=== PATIENT | male | born 1970 | race Caucasian/White ===

== ENCOUNTER → 2017-06-14 | Emergency (ER) | payer OTHER ==
[~2017-06-14] MED LIST: ALBUTEROL SO4 2.5/IPRATROPIUM 0.5 INH SOL 3 ML VIAL.NEB. NEB ONE; MONTELUKAST NA 10 MG TABLET ONE; MONTELUKAST NA 10 MG TABLET PO ONE; predniSONE 20 MG TABLET (UD) ONE; predniSONE 20 MG TABLET (UD) PO ONE
[2017-06-14 18:14] VITALS: BMI 35.4
--- NOTE | 2017-06-14 18:49 | PDOC ---
History of Present Illness - General Chief Complaint: Respiratory Stated Complaint: COUGH/SOB Time Seen by Provider: 06/14/17 18:47 History Source: Patient, Family Exam Limitations: No Limitations - History of Present Illness Initial Comments: 06/14/17 18:48 Patient is a 47 year old male with recent diagnosis of asthma presenting with 3 weeks of a productive cough and difficulty breathing that has been acutely worse recently. Patient states that he has been having a tickling sensation in his throat that causes him to have coughing spells during which he cannot catch his breath. His coughs are wet and produce a white sputum that occasionally contains specs of blood. Symptoms are worse at night and aggravated by walking. Patient states he currently can only walk a short distance before he starts coughing and has to stop. When sleeping, patient often has to sit up to keep from coughing. 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 He was prescribed an albuterol inhaler q4hr that helped and after about three months his symptoms resolved and he only occasionally used the inhaler until three weeks ago. In the last three weeks patient has been using the inhaler 10+ times a day with minimal relief. Patient claims he was prescribed prednisone PRN for his previous incident and has taken an unknown amount of that recently and it helped some. Denies any other medications. Patient denies having asthma, allergies or similar symptoms when he was younger but has a mother and sister with asthma. He has never been intubated or required BiPap or hospitalization for his condition. He did present to the ED on one previous occasion and received DuoNeb treatments. Patient is a lifelong non-smoker but has worked in a [employer] for the last 5 years. Denies acid reflux of waking with a bad taste in his mouth. Endorses nasal congestion but denies fever, chills, nausea, vomiting, diarrhea, recent illness and sick contacts. Patient is here his son who also works in the [employer] and translated for his father. PCP: Moy Gomez ([phone]) Past History - Past Medical History Allergies/Adverse Reactions: Allergies Allergy/AdvReac Type Severity Reaction Status Date / Time No Known Allergies Allergy Verified 06/14/17 18:14 Home Medications: Ambulatory Orders Albuterol Sulfate Inhaler - [Ventolin HFA Inhaler -] 1 - 2 inh PO Q4H #1 inhaler 01/28/17 Montelukast Na [Singulair -] 10 mg PO HS #30 tablet 06/14/17 Prednisone [Deltasone -] 2 tab PO DAILY #10 tablet 06/14/17 Asthma: Yes - Psycho/Social/Smoking Cessation Hx Anxiety: No Suicidal Ideation: No Smoking Status: No Smoking History: Never smoked Number of Cigarettes Smoked Daily: 0 Hx Alcohol Use: No Drug/Substance Use Hx: No Substance Use Type: None Review of Systems - Review of Systems Able to Perform ROS?: Yes Is the patient limited Chadian proficient: Yes Constitutional: No: Chills, Fever, Malaise Respiratory: Yes: Cough (coughing spells due to "tickle" in throat), Shortness of Breath Cardiac (ROS): Yes: Chest Tightness, Other (Tickle in throat). No: Chest Pain, Edema, Palpitations, Syncope ABD/GI: Yes: Other (denies gerd). No: Constipated, Diarrhea, Nausea, Vomiting Musculoskeletal: No: Joint Pain, Muscle Pain, Muscle Weakness Integumentary: No: Bruising, Rash Neurological: Yes: Dizziness (when in coughing spell). No: Headache Psychiatric: No: Anxiety *Physical Exam - Vital Signs Last Vital Signs Temp Pulse Resp BP Pulse Ox 98.2 F 89 22 145/105 94 L 06/14/17 18:10 06/14/17 18:10 06/14/17 18:10 06/14/17 18:10 06/14/17 18:10 06/14/17 19:50 Peak Flow 210 O2Sat 99% on 2L - Physical Exam General Appearance: Yes: Nourished, Appropriately Dressed, Mild Distress, Obese (Moderatly) HEENT: positive: EOMI, JENISE, Normal ENT Inspection, Normal Voice Neck: positive: Supple. negative: Stridor, Lymphadenopathy (R), Lymphadenopathy (L) Respiratory/Chest: positive: Wheezing (corse, all lung quiñones, b/l), Other (Wet cough on deep inspiration). negative: Chest Tender, Accessory Muscle Use, Labored Respiration Cardiovascular: positive: Regular Rhythm, Regular Rate. negative: Edema, JVD, Murmur Gastrointestinal/Abdominal: positive: Soft. negative: Tender, Distended Musculoskeletal: positive: Normal Inspection Extremity: positive: Normal Capillary Refill, Normal Inspection Integumentary: positive: Normal Color, Dry, Warm Neurologic: positive: performance consultant II-XII NML intact, Fully Oriented, Alert, Normal Mood/ Affect, Motor Strength / Medical Decision Making - Medical Decision Making 06/14/17 18:49 47 year old male with history of congestive cough and difficultly breathing presents with 3 weeks of progressive congestion, cough, and difficulty breathing that became much worse this morning. Patient could not catch his breath when walking. Having to sit up to sleep at night. Ddx includes but is not limited to CHF, PNA, Pneumonitis, seasonal asthma, bronchitis, bronchietasis, GERD, upper airway cough syndrome Peak flow measurement Duoneb q15 x3 Prednisone 40mg Singular EKG, CXR, Repeat peak flow monitor and reevaluate 06/14/17 19:43 Initial peak flow measurement: 210 Started initial neb 06/14/17 20:27 Patient improved after 2x NEB but still with expiratory wheezing in lower lungs Peak flow measurement: 250 06/14/17 21:56 EKG: NSR, possible flattening of T-waves Patient still has minimal expiratory wheezing after 3x NEB, pt able to ambulate without coughing SOB Peak flow 350 CXR: No acute pathology or acute changes Additional NEB, peak flow, walk, reevaluate 06/14/17 23:20 Patient states he is feeling better, lungs clear with no wheezing Peak flow 375, patient still coughs on deep inspiration Walked patient around the the ED, O2Sat at 95% Discussed with patient need to see 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 Return precautions given. 06/14/17 23:27 Patient remains afebrile, discharged to home. *DC/Admit/Observation/Transfer Diagnosis at time of Disposition: Reactive airway disease Qualifiers: Asthma severity: unspecified severity Asthma complication type: uncomplicated Qualified Code(s): J45.909 - Unspecified asthma, uncomplicated - Discharge Dispostion Disposition: HOME Condition at time of disposition: Improved Admit: No - Prescriptions Prescriptions: Prednisone [Deltasone -] 2 tab PO DAILY #10 tablet Montelukast Na [Singulair -] 10 mg PO HS #30 tablet - Referrals Referrals: Jillian Mcrae MD [Primary Care Provider] - - Patient Instructions Printed Discharge Instructions: DI for Reactive Airway Disease-Adult, Reactive Airway Disease-Adult Additional Instructions: Thank you for trusting us with your health care today. I hope you were happy with the care we provided. As we discussed, the congestion in your chest could have been caused by a number of different things. The generic term we give this is reactive airway disease. It includes asthma and bronchitis and can be triggered by a number of different things like dust or other allergens. Because you are having worsening symptoms, it is important that you follow up with your primary physician. He can offer you different treatment options to help control the symptoms. If you start to experience worsening symptoms or feel that you cannot catch your breath, you should return to the emergency department or call 911 immediately. Print Language: MOHAWK
[2017-06-14] MEDS: ALBUTEROL SO4 2.5/IPRATROPIUM 0.5 INH SOL 3 ML VIAL.NEB. NEB SCH ×2 (19:22→19:51)
--- NOTE | 2017-06-14 20:32 | PDOC ---
Attending Attestation - Resident Resident Name: Gerard Headley - HPI HPI: 06/14/17 20:28 Pt comes with asthma exacerbation. 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 which is making it difficult to breathe. Pt never had a history of asthma ever in his life. Over the past 3-4 months pt developed new onset asthma, likely due to his work environment. Pt never smoked in his life and has no second hand smoke exposure. No ill contacts. He is afebrile. Pt has no PMHx other than high cholesterol. Pt is overweight. No history of DM or HTN. He has a PMD David Gomez, who sent him to a youth coordinator who diagnosed the dustmite allergy. - Physicial Exam PE: 06/14/17 20:31 Agree with resident exam. - Medical Decision Making 06/14/17 20:31 Pt will be treated for the reactive airway disease. We will reevaluate. 06/14/17 23:25 Pt has pulsox of 95% after ambulating about the ER. He will be sent home with percocet and singulair.
[2017-06-14 23:38] VITALS: BP 147/83; PULSE 74; TEMP 98
--- NOTE | 2017-06-15 17:41 | EKG ---
Test Reason : Blood Pressure : / mmHG Vent. Rate : 067 BPM Atrial Rate : 067 BPM P-R Int : 150 ms QRS Dur : 082 ms QT Int : 426 ms P-R-T Axes : 053 -03 014 degrees QTc Int : 450 ms NORMAL SINUS RHYTHM WITH SINUS ARRHYTHMIA NORMAL ECG NO PREVIOUS ECGS AVAILABLE NO CLINICAL INFORMATION IS AVAILABLE REPEAT INDICATED Confirmed by ISAIAS FREEMAN MD ([id number]) on 06/15/2017 5:41:11 PM Referred By: Confirmed By:ISAIAS FREEMAN MD
== END | disposition home or self-care (01) ==
LOC: JER 18:09
PROC: 3E0F7GC Introduction of Other Therapeutic Substance into Respiratory Tract, Via Natural or Artificial Opening (ICD-10-PCS; principal; 2017-06-14)
PROC: 3E0F7GC Introduction of Other Therapeutic Substance into Respiratory Tract, Via Natural or Artificial Opening (ICD-10-PCS; 2017-06-14)
DX: J45.901 Unspecified asthma with (acute) exacerbation (principal)
CPT/HCPCS: 71020-TC; 93005; 93010; 94640; 99283-25

== ENCOUNTER 2017-11-10 00:28 | Observation (INO) | payer OTHER ==
[2017-11-10 01:57] VITALS: BMI 25.1
[2017-11-10] MEDS ORDERED: ALBUTEROL SO4 2.5/IPRATROPIUM 0.5 INH SOL 3 ML VIAL.NEB. NEB ONE ×5 (02:09→07:55)
--- NOTE | 2017-11-10 02:23 | PDOC ---
History of Present Illness - General Chief Complaint: Shortness of Breath Stated Complaint: ASTHMA Time Seen by Provider: 11/10/17 02:10 History Source: Patient Exam Limitations: No Limitations - History of Present Illness Initial Comments: 11/10/17 02:21 Patient is a 47 year old male with h/o asthma diagnosed 6 months ago c/o asthma symptoms since x 3 weeks, has been coughing and wheezing unable to sleep due to the cough. Tonight worsening using his MDI every hour without relief. Has been on steriods in the past last time was 3 months ago. States has a headache and chest pain with coughing. Denies any fever, chills, PMD: Dr. Gomez PMHX: as above PSOCHX: ALL: NKDA GENERAL/CONSTITUTIONAL: [No fever or chills. No weakness. No weight change.] HEAD, EYES, EARS, NOSE AND THROAT: [No change in vision. No ear pain or discharge. No sore throat.] CARDIOVASCULAR: [No chest pain or shortness of breath.] RESPIRATORY: (+) cough, (+) wheezing, (-) hemoptysis.] GASTROINTESTINAL: [No nausea, vomiting, diarrhea or constipation. No rectal bleeding.] GENITOURINARY: [No dysuria, frequency, or change in urination.] MUSCULOSKELETAL: [No joint or muscle swelling or pain. No neck or back pain.] SKIN AND BREASTS: [No rash or easy bruising.] NEUROLOGIC: [No headache, vertigo, loss of consciousness, or loss of sensation.] PSYCHIATRIC: [No depression or anxiety.] ENDOCRINE: [No increased thirst. No abnormal weight change.] HEMATOLOGIC/LYMPHATIC: [No anemia, easy bleeding, or history of blood clots.] ALLERGIC/IMMUNOLOGIC: [No hives or skin allergy. No latex allergy.] GENERAL: [The patient is awake, alert, and fully oriented, in mild distress.] HEAD: [Normal with no signs of trauma.] EYES: [Pupils equal, round and reactive to light, extraocular movements intact, sclera anicteric, conjunctiva clear.] ENT: [Ears normal, nares patent, oropharynx clear without exudates. Moist mucous membranes.] NECK: [Normal range of motion, supple without lymphadenopathy, JVD, or masses.] LUNGS: bilaterally wheezes, and no crackles.] HEART: [tachycardic, S1 and S2 without murmur, rub.] ABDOMEN: [Soft, nontender, normoactive bowel sounds. No guarding, no rebound. No masses.] EXTREMITIES: [Normal range of motion, no edema. No clubbing or cyanosis. No cords, erythema, or tenderness.] NEUROLOGICAL: [Cranial nerves II through XII grossly intact. Normal speech, normal gait.] PSYCH: [Normal mood, normal affect.] SKIN: [Warm, Dry, normal turgor, no rashes or lesions noted.] Past History - Past Medical History Allergies/Adverse Reactions: Allergies Allergy/AdvReac Type Severity Reaction Status Date / Time No Known Allergies Allergy Verified 11/10/17 01:57 Home Medications: Ambulatory Orders Albuterol Sulfate Inhaler - [Ventolin HFA Inhaler -] 1 - 2 inh PO Q4H #1 inhaler 01/28/17 Montelukast Na [Singulair -] 10 mg PO HS #30 tablet 06/14/17 Prednisone [Deltasone -] 2 tab PO DAILY #10 tablet 06/14/17 Asthma: Yes - Suicide/Smoking/Psychosocial Hx Smoking Status: No Smoking History: Never smoked Have you smoked in the past 12 months: No Number of Cigarettes Smoked Daily: 0 Information on smoking cessation initiated: No Hx Alcohol Use: No Drug/Substance Use Hx: No Substance Use Type: None *Physical Exam - Vital Signs Last Vital Signs Temp Pulse Resp BP Pulse Ox 98.5 F 124 H 25 H 149/96 92 L 11/10/17 01:54 11/10/17 01:54 11/10/17 01:54 11/10/17 01:54 11/10/17 01:54 ED Treatment Course - LABORATORY CBC & Chemistry Diagram: 11/10/17 02:56 11/10/17 02:56 - Medications Given in the ED: ED Medications Discontinued Medications Generic Name Dose Route Start Last Admin Trade Name Freq PRN Reason Stop Dose Admin Albuterol/Ipratropium 1 amp 11/10/17 02:09 11/10/17 02:10 Duoneb - NEB 11/10/17 02:10 1 amp NOW ONE Administration Medical Decision Making - Medical Decision Making 11/10/17 02:22 Patient is a 47 year old male with h/o asthma diagnosed 6 months ago c/o asthma symptoms since x 3 weeks, has been coughing and wheezing unable to sleep due to the cough. will given nebs, solumedrol IV, chest xray, labs IVF for tachycardia reassess cxr neg no pneumonia 11/10/17 05:48 re-eval patient is feeling better p/e lungs mild wheezing will give another treatment O2 sat 93% on RA will continue to evaluate 0700 patient receiving treatment still has mild wheezing Endorsed to [facility] [facility]PA[facility] for re-eval and possible admission if not improved *DC/Admit/Observation/Transfer Diagnosis at time of Disposition: Asthmaticus, status Qualifiers: Asthma severity: unspecified severity Asthma persistence: persistent Qualified Code(s): J45.902 - Unspecified asthma with status asthmaticus - Discharge Dispostion Condition at time of disposition: Fair - Referrals Referrals: Moy Gomez MD [Primary Care Provider] - - Patient Instructions Additional Instructions: Your Discharge Instructions: You must call primary care physician within 24 hours to arrange follow-up. Return to the Emergency Department with any new, persistent or worsening symptoms, for fever, chills, SOB, dizziness or any other concerning changes that may occur. - Post Discharge Activity
[2017-11-10] MEDS ORDERED: methylPREDNISolone NA SUCC 125 MG/2 ML VIAL IVPUSH ONE (02:39)
[2017-11-10] MEDS: ALBUTEROL SO4 0.083% IH SOL 2.5 MG/3 ML VIAL.NEB. NEB SCH ×4 (02:45→06:25)
[2017-11-10] MEDS ORDERED: SODIUM CHLORIDE 0.9% 1000 ML INFUS.BAG IV ONE (02:50)
[2017-11-10] MEDS ORDERED: methylPREDNISolone NA SUCC 125 MG/2 ML VIAL ONE (02:58)
[2017-11-10] MEDS ORDERED: ALBUTEROL SO4 0.083% IH SOL 2.5 MG/3 ML VIAL.NEB. NEB ONE (02:59)
[2017-11-10 03:03] LABS: BASO # 0.1 # (0.1-1); BASO % 0.9 % (0-2.0); EOS # 1.3 # (0-4.5); MCHC 33.2 g/dl (32.0-35.9); MEAN CELL VOLUME 84.5 fl (80-96); MEAN PLT VOLUME 7.6 fl (7.5-11.1); MONO # 0.7 # (3.8-10.2); NEUT # 3.8 # (42.8-82.8); PLATELET COUNT 204 K/MM3 (134-434); WHITE BLOOD COUNT 7.8 K/mm3 (4.0-10.0)
[2017-11-10 03:59] LABS: ANION GAP 10 (8-16); CALCIUM 9.4 mg/dL (8.5-10.1); CO2 27 mmol/L (21-32); CREATININE 1.2 mg/dL (0.7-1.3); GLUCOSE,RANDOM 105 mg/dL (74-106)
[2017-11-10] MEDS ORDERED: MAGNESIUM SULF 50% (8.12 MEQ/2 ML-1 GM VIAL) IVPB ONE (07:43)
--- NOTE | 2017-11-10 07:47 | PDOC ---
*Physical Exam - Vital Signs Last Vital Signs Temp Pulse Resp BP Pulse Ox 98.1 F 85 20 145/92 95 11/10/17 07:22 11/10/17 07:22 11/10/17 07:22 11/10/17 07:22 11/10/17 07:24 - Physical Exam Comments: 11/10/17 08:01 Turnover received from HANNAH Fonseca. Patient states feels continued shortness of breath, is speaking until 3-4 word sentences, discussed possible admission to hospital and patient agrees. General Appearance: Yes: Nourished, Appropriately Dressed, Apparent Distress, Moderate Distress HEENT: positive: JENISE, TMs Normal Neck: positive: Supple. negative: Tender, Trachea midline Respiratory/Chest: positive: Rhonchi, Wheezing. negative: Lungs Clear Cardiovascular: positive: Regular Rate Gastrointestinal/Abdominal: positive: Tender, Soft Extremity: positive: Normal Capillary Refill, Normal Inspection Integumentary: positive: Warm, Pale Neurologic: positive: regulatory affairs specialist II-XII NML intact, Fully Oriented, Alert, Normal Mood/ Affect, Normal Response, Motor Strength 5/5 Heart Score/ECG Review - Electrocardiogram EKG: Normal - ST and T Non Specific ST-T Wave changes: No - ECG Impressions Normal ECG: Yes Non-specific ST Elevation: No Ischemic Changes: No ED Treatment Course - LABORATORY CBC & Chemistry Diagram: 11/10/17 02:56 11/10/17 02:56 - ADDITIONAL ORDERS Additional order review: Laboratory Results 11/10/17 02:56 Sodium 141 Potassium 3.6 Chloride 104 Carbon Dioxide 27 Anion Gap 10 BUN 13 D Creatinine 1.2 D Random Glucose 105 Calcium 9.4 11/10/17 02:56 RBC 4.93 MCV 84.5 MCHC 33.2 RDW 13.0 MPV 7.6 Neutrophils % 48.0 D Lymphocytes % 25.6 Monocytes % 9.5 Eosinophils % 16.0 H D Basophils % 0.9 - Medications Given in the ED: ED Medications Discontinued Medications Generic Name Dose Route Start Last Admin Trade Name Freq PRN Reason Stop Dose Admin Albuterol Sulfate 1 amp 11/10/17 02:45 11/10/17 06:25 Ventolin 0.083% Nebulizer Soln - NEB 11/10/17 03:31 1 amp Q15M EUGENIE Administration Albuterol/Ipratropium 1 amp 11/10/17 02:09 11/10/17 02:10 Duoneb - NEB 11/10/17 02:10 1 amp NOW ONE Administration Albuterol/Ipratropium 1 amp 11/10/17 02:41 11/10/17 03:18 Duoneb - NEB 11/10/17 02:42 1 amp ONCE ONE Administration Albuterol/Ipratropium 1 amp 11/10/17 05:41 11/10/17 05:42 Duoneb - NEB 11/10/17 05:42 1 amp ONCE ONE Administration Methylprednisolone Sodium Succinate 125 mg 11/10/17 02:39 11/10/17 03:19 Solu-Medrol - IVPUSH 11/10/17 02:40 125 mg ONCE ONE Administration Sodium Chloride 1,000 ml 11/10/17 02:50 11/10/17 03:19 Normal Saline - IV 11/10/17 02:51 1,000 ml ONCE ONE Administration Progress Note - Progress Note Progress Note: 0900 DISCUSSED CASE WITH dR Orellana, will accept patient for admission to obs. Patient is updated to plan, receiving a additional DuoNeb, will receive mag sulfate, and chest x-ray. *DC/Admit/Observation/Transfer Diagnosis at time of Disposition: Asthmaticus, status Qualifiers: Asthma severity: unspecified severity Asthma persistence: persistent Qualified Code(s): J45.902 - Unspecified asthma with status asthmaticus - Discharge Dispostion Disposition: HOME Condition at time of disposition: Stable Admit: Yes - Referrals - Patient Instructions - Post Discharge Activity
[2017-11-10] MEDS ORDERED: MAGNESIUM SULF 50% (8.12 MEQ/2 ML-1 GM VIAL) ONE (08:13)
--- NOTE | 2017-11-10 15:22 | EKG ---
Test Reason : Blood Pressure : / mmHG Vent. Rate : 097 BPM Atrial Rate : 097 BPM P-R Int : 136 ms QRS Dur : 090 ms QT Int : 376 ms P-R-T Axes : 067 -01 024 degrees QTc Int : 477 ms POOR DATA QUALITY, INTERPRETATION MAY BE ADVERSELY AFFECTED NORMAL SINUS RHYTHM WITH SINUS ARRHYTHMIA NONSPECIFIC T WAVE ABNORMALITY PROLONGED QT ABNORMAL ECG WHEN COMPARED WITH ECG OF 14-JUN-2017 20:52, NO SIGNIFICANT CHANGE WAS FOUND Confirmed by NOMI BARROSO MD ([id number]) on 11/10/2017 3:22:33 PM Referred By: Confirmed By:NOMI BARROSO MD
--- NOTE | 2017-11-10 15:56 | HP ---
Admitting History and Physical - Primary Care Physician PCP: Moy Gomez - Admission Chief Complaint: shortness of breath History of Present Illness: HPI: Briefly, this 47 year old male with pmhx asthma diagnosed 6 months ago. For the past 3 weeks his breathing and shortness of breath have worsened. He is unable to sleep and last night he was using his inhaler every hour without relief. History Source: Patient, Medical Record Limitations to Obtaining History: No Limitations - Past Medical History Pulmonary: Yes: Asthma - Smoking History Smoking history: Never smoked Have you smoked in the past 12 months: No Aproximately how many cigarettes per day: 0 - Alcohol/Substance Use Hx Alcohol Use: No History of Substance Use: reports: None - Social History ADL: Independent Home Medications - Allergies Allergies/Adverse Reactions: Allergies Allergy/AdvReac Type Severity Reaction Status Date / Time No Known Allergies Allergy Verified 11/10/17 01:57 - Home Medications Home Medications: Ambulatory Orders Albuterol Sulfate Inhaler - [Ventolin HFA Inhaler -] 1 - 2 inh PO Q4H #1 inhaler 01/28/17 Montelukast Na [Singulair -] 10 mg PO HS #30 tablet 06/14/17 Prednisone [Deltasone -] 2 tab PO DAILY #10 tablet 06/14/17 Review of Systems - Review of Systems Constitutional: reports: No Symptoms Eyes: reports: No Symptoms HENT: reports: No Symptoms Neck: reports: No Symptoms Cardiovascular: reports: Shortness of Breath Respiratory: reports: SOB, SOB on Exertion, Wheezing Gastrointestinal: reports: No Symptoms Genitourinary: reports: No Symptoms Musculoskeletal: reports: No Symptoms Integumentary: reports: No Symptoms Neurological: reports: No Symptoms Endocrine: reports: No Symptoms Hematology/Lymphatic: reports: No Symptoms Psychiatric: reports: No Symptoms Physical Examination Vital Signs: Vital Signs Temperature 98.2 F 11/10/17 14:36 Pulse Rate 104 H 11/10/17 14:36 Respiratory Rate 18 11/10/17 14:36 Blood Pressure 140/74 11/10/17 14:36 O2 Sat by Pulse Oximetry (%) 90 L 11/10/17 13:52 Constitutional: Yes: No Distress Eyes: Yes: Conjunctiva Clear HENT: Yes: Atraumatic Neck: Yes: Supple Cardiovascular: Yes: Regular Rate and Rhythm, S1, S2 Respiratory: Yes: Diminished, On Nasal O2, Rhonchi, Wheezes Gastrointestinal: Yes: Normal Bowel Sounds, Soft Renal/: Yes: WNL Musculoskeletal: Yes: WNL Edema: No Neurological: Yes: Alert, Oriented, Cran Nerves II-XII Intact ...Motor Strength: WNL Labs: CBC, BMP 11/10/17 02:56 11/10/17 02:56 Imaging - Results Chest X-ray: Report Reviewed (no acute infiltrates) Problem List - Problems (1) Asthmaticus, status Code(s): J45.902 - UNSPECIFIED ASTHMA WITH STATUS ASTHMATICUS Qualifiers: Asthma severity: unspecified severity Asthma persistence: persistent Qualified Code(s): J45.902 - Unspecified asthma with status asthmaticus Assessment/Plan Assessment: 47 year old male placed under observation with acute asthma exacerbation Plan: 1. Acute asthma exacerbation - Solumedrol 40mg q8 - Duonebs noe - Supplemental o2 spo2 >92% 2. HTN - check hgba1c - Start lisinopril 10mg qday 3. dvt ppx - SCDs Visit type - Emergency Visit Emergency Visit: Yes ED Registration Date: 11/10/17 Care time: The patient presented to the Emergency Department on the above date and was hospitalized for further evaluation of their emergent condition. - New Patient This patient is new to me today: Yes Date on this admission: 11/10/17 - Critical Care Critical Care patient: No
[2017-11-10] MEDS: methylPREDNISolone NA SUCC 125 MG/2 ML VIAL IVPB SCH (17:21)
[2017-11-10] MEDS: ALBUTEROL SO4 2.5/IPRATROPIUM 0.5 INH SOL 3 ML VIAL.NEB. NEB SCH ×2 (18:43→23:20)
[2017-11-10] MEDS: ACETAMINOPHEN 325 MG TABLET (FP) PO PRN (20:37)
[2017-11-10] MEDS: MONTELUKAST NA 10 MG TABLET PO SCH (21:55)
[2017-11-11] MEDS: methylPREDNISolone NA SUCC 125 MG/2 ML VIAL IVPB SCH ×3 (02:57→17:04)
[2017-11-11] MEDS: ALBUTEROL SO4 2.5/IPRATROPIUM 0.5 INH SOL 3 ML VIAL.NEB. NEB SCH ×4 (06:43→23:30)
[2017-11-11 06:57] LABS: BASO % 0.1 % (0-2.0); LYMPH # 0.8 (8-40); MCH 28.4 pg (25.7-33.7); MCHC 33.5 g/dl (32.0-35.9); MEAN CELL VOLUME 84.7 fl (80-96); MEAN PLT VOLUME 7.7 fl (7.5-11.1); MONO # 0.4 # (3.8-10.2); NEUT % 88.5 % (42.8-82.8); PLATELET COUNT 270 K/MM3 (134-434); RDW 13.8 % (11.9-15.9); WHITE BLOOD COUNT 10.2 K/mm3 (4.0-10.0)
[2017-11-11 07:42] LABS: ALBUMIN 4.2 g/dl (3.4-5.0); ALK PHOS 90 U/L (45-117); ANION GAP 12 (8-16); BILIRUBIN,TOTAL 0.7 mg/dL (0.2-1.0); CALCIUM 10.1 mg/dL (8.5-10.1); CO2 25 mmol/L (21-32); GLUCOSE,RANDOM 145 mg/dL (74-106); MAGNESIUM 2.2 mg/dL (1.8-2.4); PHOSPHOROUS 3.8 mg/dL (2.5-4.9); SGOT/AST 16 U/L (15-37); SGPT/ALT 22 U/L (12-78); TOT PROT 8.1 g/dl (6.4-8.2)
[2017-11-11] MEDS ORDERED: PT OWN MED DRAWER 7, Y5N ONE (09:19)
[2017-11-11] MEDS: LISINOPRIL 10 MG TABLET (FP) PO SCH (09:20)
[2017-11-11] MEDS: ACETAMINOPHEN 325 MG TABLET (FP) PO PRN ×3 (09:21→20:32)
--- NOTE | 2017-11-11 13:06 | PN ---
Physical Exam: SUBJECTIVE: Patient seen and examined in bed. Patient states his breathing is easier. OBJECTIVE: Vital Signs Period Temp Pulse Resp BP Sys/Chung Pulse Ox Last 24 Hr 97.5 F-98.6 F 80-117 18-22 126-150/74-98 90-94 GENERAL: The patient is awake, alert, and fully oriented, in no acute distress. HEAD: Normal with no signs of trauma. LUNGS: Respirations even and unlabored. Scattered wheezes diffusely. HEART: Regular rate and rhythm, S1, S2 without murmur, rub or gallop. ABDOMEN: SNTND EXTREMITIES: 2+ pulses, warm, well-perfused, no edema. NEUROLOGICAL: Cranial nerves II through XII grossly intact. Normal speech, gait not observed. Laboratory Results - last 24 hr 11/11/17 11/11/17 11/11/17 06:40 06:40 06:40 WBC 10.2 H D RBC 5.09 Hgb 14.4 Hct 43.1 MCV 84.7 MCH 28.4 MCHC 33.5 RDW 13.8 Plt Count 270 D MPV 7.7 Neutrophils % 88.5 H D Lymphocytes % 7.9 L D Monocytes % 3.5 L Eosinophils % 0.0 D Basophils % 0.1 Sodium 136 Potassium 4.8 D Chloride 99 Carbon Dioxide 25 Anion Gap 12 BUN 18 D Creatinine 1.0 Creat Clearance w eGFR > 60 Random Glucose 145 H D Hemoglobin A1c % 6.4 H Calcium 10.1 Phosphorus 3.8 Magnesium 2.2 Total Bilirubin 0.7 AST 16 ALT 22 Alkaline Phosphatase 90 Total Protein 8.1 Albumin 4.2 Active Medications Generic Name Dose Route Start Last Admin Trade Name Robinq PRN Reason Stop Dose Admin Acetaminophen 650 mg 11/10/17 16:43 11/11/17 09:21 Tylenol - PO 650 mg Q4H PRN Administration FEVER OR PAIN Albuterol/Ipratropium 1 amp 11/10/17 18:00 11/11/17 06:43 Duoneb - NEB 1 amp QIDR EUGENIE Administration Lisinopril 10 mg 11/11/17 10:00 11/11/17 09:20 Prinivil PO 10 mg DAILY EUGENIE Administration Methylprednisolone Sodium Succinate 40 mg 11/10/17 18:00 11/11/17 09:24 Solu-Medrol - IVPB 40 mg Q8H-IV EUGENIE Administration Montelukast Sodium 10 mg 11/10/17 22:00 11/10/17 21:55 Singulair - PO 10 mg HS EUGENIE Administration ASSESSMENT/PLAN: A: 47yo man recently diagnosed with asthma now with exacerbation worsening over the past 3 weeks. P: Asthma - Duonebs qid - Solumedrol 40mg q8h - Singulair - titrate O2 to maintain Spo2>92% HTN - Lisinopril F/E/N - regular diet PPX - OOB Dispo- likely discharge tomorrow Visit type - Emergency Visit Emergency Visit: Yes ED Registration Date: 11/10/17 Care time: The patient presented to the Emergency Department on the above date and was hospitalized for further evaluation of their emergent condition. - New Patient This patient is new to me today: Yes Date on this admission: 11/11/17 - Critical Care Critical Care patient: No
[2017-11-11] MEDS: MONTELUKAST NA 10 MG TABLET PO SCH (21:25)
[2017-11-12] MEDS: methylPREDNISolone NA SUCC 125 MG/2 ML VIAL IVPB SCH ×2 (02:06→09:47)
[2017-11-12] MEDS: ALBUTEROL SO4 2.5/IPRATROPIUM 0.5 INH SOL 3 ML VIAL.NEB. NEB SCH ×2 (06:30→11:25)
[2017-11-12 07:51] LABS: LYMPH # 1.2 (8-40); MCH 27.3 pg (25.7-33.7); MEAN CELL VOLUME 85.4 fl (80-96); MEAN PLT VOLUME 7.8 fl (7.5-11.1); MONO # 0.5 # (3.8-10.2); NEUT # 11.3 # (42.8-82.8); NEUT % 86.6 % (42.8-82.8); PLATELET COUNT 232 K/MM3 (134-434); RDW 13.7 % (11.9-15.9)
[2017-11-12 08:06] LABS: ANION GAP 11 (8-16); CO2 27 mmol/L (21-32); GLUCOSE,RANDOM 146 mg/dL (74-106)
[2017-11-12 08:08] LABS: CALCIUM 9.5 mg/dL (8.5-10.1)
--- NOTE | 2017-11-12 08:34 | DS ---
Physical Exam: SUBJECTIVE: Patient seen and examined OBJECTIVE: Vital Signs Period Temp Pulse Resp BP Sys/Chung Pulse Ox Last 24 Hr 97.6 F-98.2 F 72-98 18-20 115-150/70-84 PHYSICAL EXAM GENERAL: The patient is awake, alert, and fully oriented, in no acute distress. HEAD: Normal with no signs of trauma. LUNGS: Respirations even and unlabored. Lungs CTAB. HEART: Regular rate and rhythm, S1, S2 without murmur, rub or gallop. ABDOMEN: SNTND EXTREMITIES: 2+ pulses, warm, well-perfused, no edema. NEUROLOGICAL: Cranial nerves II through XII grossly intact. Normal speech, gait not observed. LABS Laboratory Results - last 24 hr 11/11/17 11/12/17 11/12/17 06:40 06:40 06:40 WBC 13.0 H RBC 5.04 Hgb 13.8 Hct 43.1 MCV 85.4 MCH 27.3 MCHC 32.0 RDW 13.7 Plt Count 232 MPV 7.8 Neutrophils % 86.6 H Lymphocytes % 9.2 Monocytes % 4.2 Eosinophils % 0.0 Basophils % 0.0 Sodium 138 Potassium 4.6 Chloride 100 Carbon Dioxide 27 Anion Gap 11 BUN 16 Creatinine 1.0 Random Glucose 146 H Hemoglobin A1c % 6.4 H Calcium 9.5 HOSPITAL COURSE: Date of Admission:11/10/17 Date of Discharge: 11/12/17 Minutes to complete discharge: 45 Discharge Summary Reason For Visit: ASTHMA WITH STATUS ASTHMATICUS Current Active Problems Asthmaticus, status (Acute) Hospital Course: Patient is a 47 year old male with h/o asthma diagnosed 6 months ago c/o asthma symptoms since x 3 weeks, had been coughing and wheezing unable to sleep due to the cough. On the night of presentation, worsening using his MDI every hour without relief. Had been on steriods in the past, last time was 3 months ago. Stated that he had a headache and chest pain with coughing. Denies any fever, chills. Asthma - continue taking your singulair - Prednisone 40mg daily x7 days - continue Albuterol MDI - f/u with Dr. Gomez within 7 days HTN - well controlled - Lisinopril 10mg daily Condition: Stable - Instructions Diet, Activity, Other Instructions: Your Discharge Instructions: Take Lisinopril 10mg every day. Keep well hydrated. Eat a well balanced diet. You must call primary care physician within 24 hours to arrange follow-up within 1 week. Return to the Emergency Department with any new, persistent or worsening symptoms, for fever, chills, SOB, dizziness or any other concerning changes that may occur. Thank you very much for choosing us to provide your healthcare needs. [place] Lisinopril 10 mg todos los garibay. Mantente chong hidratado. Coma toya dieta chong equilibrada. Debe llamar al mdico de atencin primaria dentro de las 24 horas para organizar el seguimiento dentro de 1 semana. Regrese al Departamento de Emergencia con cualquier sntoma nuevo, persistente o que empeore, para la fiebre, escalofros, SOB, mareos o cualquier otro cambio relacionado que pueda ocurrir. Muchas js por elegirnos para brindarle bobby necesidades de atencin mdica. Referrals: Moy Gomez MD [Primary Care Provider] - Disposition: HOME - Home Medications Comprehensive Discharge Medication List: Ambulatory Orders Albuterol Sulfate Inhaler - [Ventolin HFA Inhaler -] 1 - 2 inh PO Q4H #1 inhaler 01/28/17 Montelukast Na [Singulair -] 10 mg PO HS #30 tablet 06/14/17 Lisinopril [Prinivil] 10 mg PO DAILY #30 tablet 11/12/17 Prednisone [Deltasone -] 2 tab PO DAILY #14 tablet 11/12/17 This patient is new to me today: No Emergency Visit: Yes ED Registration Date: 11/10/17 Care time: The patient presented to the Emergency Department on the above date and was hospitalized for further evaluation of their emergent condition. Critical Care patient: No - Discharge Referral Referred to [facility] Med P.C.: No
[2017-11-12] MEDS: LISINOPRIL 10 MG TABLET (FP) PO SCH (09:47)
[2017-11-12 10:27] VITALS: BP 112/73; PULSE 86; TEMP 98.2
== END 2017-11-12 12:31 | disposition home or self-care (01) ==
LOC: JER 00:28 → JERBED 10:40 → J5S 13:02
PROVIDERS: ADMIT Internal Medicine; ATTEND Nurse Practitioner Family
PROC: 3E0333Z Introduction of Anti-inflammatory into Peripheral Vein, Percutaneous Approach (ICD-10-PCS; principal; 2017-11-10)
PROC: 3E033GC Introduction of Other Therapeutic Substance into Peripheral Vein, Percutaneous Approach (ICD-10-PCS; 2017-11-10)
PROC: 3E0337Z Introduction of Electrolytic and Water Balance Substance into Peripheral Vein, Percutaneous Approach (ICD-10-PCS; 2017-11-10)
PROC: 3E0F7GC Introduction of Other Therapeutic Substance into Respiratory Tract, Via Natural or Artificial Opening (ICD-10-PCS; 2017-11-10)
DX: J45.902 Unspecified asthma with status asthmaticus (principal)
CPT/HCPCS: 36415; 71020-TC; 80048; 80053; 83036; 83735; 84100; 85025; 93005; 93010; 94640; 96374; 96375; 96376; 99285-25; G0378

== ENCOUNTER 2019-12-27 08:33 | Inpatient (IN) | payer OTHER ==
[2019-12-20 15:02] VITALS: BMI 41.9
[~2019-12-27 08:33] MED LIST changes: -ALBUTEROL SO4 2.5/IPRATROPIUM 0.5 INH SOL 3 ML VIAL.NEB. NEB ONE; +ALBUTEROL SO4 HFA INHALER IH PRN; -MONTELUKAST NA 10 MG TABLET ONE; -MONTELUKAST NA 10 MG TABLET PO ONE; -predniSONE 20 MG TABLET (UD) ONE; -predniSONE 20 MG TABLET (UD) PO ONE
[2019-12-27] MEDS ORDERED: ALBUTEROL SO4 HFA INHALER IH PRN (08:34)
[2019-12-27] MEDS ORDERED: MIDAZOLAM HCL 2 MG/2 ML SINGLE DOSE VIAL ONE (09:39)
[2019-12-27] MEDS ORDERED: BUPIVACAINE HCL/PF 0.5% (5 MG/ML) 30 ML VIAL IJ ONE (09:40)
[2019-12-27] MEDS ORDERED: BUPIVACAINE HCL 0.25% 125 MG/50 ML VIAL ONE (10:11)
--- NOTE | 2019-12-27 10:12 | HP ---
Admitting History and Physical - Admission Chief Complaint: morbid obesity History Source: Patient Limitations to Obtaining History: No Limitations - Past Medical History Cardiovascular: Yes: Hyperlipdemia Pulmonary: Yes: Asthma Endocrine: Yes: Diabetes Mellitus - Past Surgical History Additional Past Surgical History: Left arm surgery Testicular surgery - Smoking History Smoking history: Never smoked Have you smoked in the past 12 months: No Aproximately how many cigarettes per day: 0 - Alcohol/Substance Use Hx Alcohol Use: No History of Substance Use: reports: None - Social History ADL: Independent Home Medications - Allergies Allergies/Adverse Reactions: Allergies Allergy/AdvReac Type Severity Reaction Status Date / Time No Known Allergies Allergy Verified 12/20/19 14:37 - Home Medications Home Medications: Ambulatory Orders Albuterol Sulfate Inhaler - [Ventolin HFA Inhaler -] 1 - 2 inh PO Q4H PRN Atorvastatin Ca [Lipitor] 20 mg PO DAILY 12/20/19 Budesonide/Formeterol Fumarate [SYMBICORT 160/4.5mcg -] 1 inh PO BID 12/20/19 Glipizide [Glipizide ER] 5 mg PO DAILY 12/20/19 Family Medical History Family History: Unremarkable Review of Systems - Review of Systems Constitutional: denies: Chills, Fever Neck: reports: No Symptoms Cardiovascular: reports: No Symptoms Respiratory: reports: No Symptoms Gastrointestinal: reports: No Symptoms Neurological: reports: No Symptoms Physical Examination Vital Signs: Vital Signs Temperature 98.2 F 12/27/19 09:21 Pulse Rate 70 12/27/19 09:21 Respiratory Rate 18 12/27/19 09:21 Blood Pressure 132/88 12/27/19 09:21 O2 Sat by Pulse Oximetry (%) Constitutional: Yes: Calm Neck: Yes: WNL Cardiovascular: Yes: WNL Respiratory: Yes: WNL Gastrointestinal: Yes: Soft, Abdomen, Obese Neurological: Yes: Alert, Oriented Problem List - Problems (1) Morbid (severe) obesity due to excess calories Code(s): E66.01 - MORBID (SEVERE) OBESITY DUE TO EXCESS CALORIES (2) Diabetes mellitus type 2 in obese Code(s): E11.69 - TYPE 2 DIABETES MELLITUS WITH OTHER SPECIFIED COMPLICATION; E66.9 - OBESITY, UNSPECIFIED (3) Hyperlipidemia Code(s): E78.5 - HYPERLIPIDEMIA, UNSPECIFIED Qualifiers: Hyperlipidemia type: unspecified Qualified Code(s): E78.5 - Hyperlipidemia , unspecified Assessment/Plan Laparoscopic possible open vertical sleeve gastrectomy, possible liver biopsy, possible endoscopy
[2019-12-27] MEDS ORDERED: fentaNYL CITRATE 250 MCG/5 ML VIAL ONE (10:38)
[2019-12-27] MEDS ORDERED: PROPOFOL 20 ML ONE ×2 (10:38→11:45)
[2019-12-27] MEDS ORDERED: ROCURONIUM BROMIDE 50 MG/5 ML SYRINGE ONE (10:40)
[2019-12-27] MEDS ORDERED: DESFLURANE GAS 240 ML BOTTLE IH ONE (10:51)
[2019-12-27] MEDS ORDERED: ceFAZolin SODIUM 1 GM VIAL ONE (10:55)
[2019-12-27] MEDS ORDERED: NEOSTIGMINE METHYLSULFATE 0.5 MG/ML - 10 ML MDV ONE (11:28)
[2019-12-27] MEDS ORDERED: BUPIVACAINE HCL/PF 0.25% (2.5MG/ML) 10 ML VIAL IJ ONE (11:42)
--- NOTE | 2019-12-27 11:50 | OPR ---
Operative Note Operative Date: 12/27/19 Pre-Operative Diagnosis: Morbid obesity; BMI 42 Operation: 1. Diagnostic laparoscopy. 2. Laparoscopic vertical sleeve gastrectomy. 3. Laparoscopic wedge liver biopsy. 4. Laparoscopic oversewing of gastric staple line Post-Operative Diagnosis: Same as Pre-op (as well as hepatomegaly and oozing from gastric staple line) Surgeon: Jay Carreno [employer] Country[employer]Track [employer] Coach: Julio Clemens Anesthesia: General Specimens Removed: Greater curvature of stomach. Liver biopsy. Estimated Blood Loss (mls): 30 Drains & Tubes with Location: 36 Fr Bougie Operative Report Dictated: Yes
[2019-12-27] MEDS ORDERED: SODIUM CHLORIDE 1,000 ML IV SCH (12:00)
[2019-12-27] MEDS ORDERED: ONDANSETRON 4 MG/2 ML VIAL IVPUSH SCH (12:00)
[2019-12-27] MEDS ORDERED: METOCLOPRAMIDE HCL INJECTION 10 MG/2 ML VIAL IVPUSH SCH (12:00)
[2019-12-27] MEDS ORDERED: FAMOTIDINE 20 MG/50 ML IVPB 20 MG/50 ML MG IVPB ONE (12:14)
[2019-12-27] MEDS ORDERED: ONDANSETRON 4 MG/2 ML VIAL ONE (12:14)
[2019-12-27] MEDS: METOCLOPRAMIDE HCL INJECTION 10 MG/2 ML VIAL IVPUSH SCH ×4 (12:17→23:56)
[2019-12-27] MEDS ORDERED: FAMOTIDINE 20 MG PREMIXED IVPB IVPB ONE (12:18)
[2019-12-27] MEDS ORDERED: ACETAMINOPHEN INJECTION 100 ML IVPB ONE (12:25)
[2019-12-27 12:28] LABS: HEMATOCRIT 42.8 % (35.4-49); MCH 28.3 pg (25.7-33.7); MCHC 32.7 g/dl (32.0-35.9); MEAN CELL VOLUME 86.7 fl (80-96); RBC 4.94 M/mm3 (4.00-5.60); RDW 13.1 % (11.9-15.9); WHITE BLOOD COUNT 8.1 K/mm3 (4.0-10.8)
[2019-12-27] MEDS ORDERED: oxyCODONE HCL 5 MG TABLET PO PRN ×2 (12:33)
[2019-12-27] MEDS ORDERED: PROMETHAZINE HCL 25 MG/1 ML VIAL IVPB PRN (12:33)
[2019-12-27] MEDS ORDERED: ONDANSETRON 4 MG/2 ML VIAL IVPUSH PRN (12:33)
[2019-12-27] MEDS: ACETAMINOPHEN 1000 MG/100 ML VIAL (NON FORMULARY) IVPB SCH ×4 (12:36→23:56)
[2019-12-27 12:44] LABS: ALBUMIN 3.6 g/dl (3.4-5.0); BILIRUBIN,TOTAL 1.7 mg/dl (0.2-1); CALCIUM 8.4 mg/dl (8.5-10); CREATININE 1.1 mg/dl (0.55-1.3); POTASSIUM 4.1 mmol/L (3.5-5.1); TOT PROT 6.4 g/dl (6.4-8.2)
[2019-12-27 12:55] LABS: MEAN PLT VOLUME 8.3 fl (7.5-11.1); PLATELET COUNT 181 K/MM3 (134-434)
[2019-12-27] MEDS: BUDESONIDE/FORMETEROL FUMARATE 160/4.5 mcg INHALER IH SCH ×2 (13:48→21:31)
[2019-12-27] MEDS: INSULIN SLIDING SCALE (NOVOLOG) 1 VIAL SQ SCH ×2 (13:48→17:16)
[2019-12-27] MEDS: ONDANSETRON 4 MG/2 ML VIAL IVPUSH SCH ×3 (13:49→21:30)
[2019-12-27] MEDS: HYDROmorphone HCL CARPU-JECT 1 MG/1 ML DISP.SYRIN IVPB PRN ×2 (14:47→19:51)
--- NOTE | 2019-12-27 16:55 | SPEC ---
DATE OF OPERATION: 12/27/2019 SURGEON: Lesly Carreno MD TIN POURER: Julio Clemens MD PREOPERATIVE DIAGNOSES: 1. Morbid obesity. 2. Diabetes mellitus. 3. Hyperlipidemia. POSTOPERATIVE DIAGNOSES: 1. Morbid obesity. 2. Diabetes mellitus. 3. Hyperlipidemia. 4. Hepatomegaly. PROCEDURES: 1. Diagnostic laparoscopy. 2. Laparoscopic vertical sleeve gastrectomy. 3. Laparoscopic wedge liver biopsy. SPECIMEN: Greater curvature of the stomach and liver biopsy. ESTIMATED BLOOD LOSS: 30 mL. DRAINS: None. ANESTHESIA: GET. BOUGIE SIZE: 36-[place]. PLACE OF SERVICE: [place] [id number] REASON FOR PROCEDURE: This is a 49-year-old gentleman who presents to the office for weight loss options. After describing different options, he decided to proceed with laparoscopic, possible open, vertical sleeve gastrectomy, possible liver biopsy, possible upper endoscopy. The patient was seen by the respective subspecialties and cleared for surgery. The risks and benefits of the procedure were explained. These included bleeding, infection, hernia, HI, DVT, PE, injury to surrounding structures including the liver, colon, bowel, spleen, esophagus, vessel injury, nerve injury, weight regain, gastric leak, staple line leak, sleeve leak, obstruction, vitamin deficiency, hair loss and as some of the possible complications. The patient understood and signed informed consent. DESCRIPTION OF PROCEDURE: The patient was placed supine on the operating room table. The patient underwent general endotracheal intubation. The arms were brought out at 90 degrees and secured. A footboard was placed and the legs were secured laterally with padding. The abdomen was prepped and draped in the usual sterile fashion. A timeout was performed. An incision was made in the left upper quadrant and a Veress needle inserted. Pneumoperitoneum was established. Subsequently, the Veress needle was removed and a 5-mm trocar was placed under direct visualization with the laparoscope. The laparoscopic camera was then inserted and inspection of the abdominal cavity was performed. An incision was then made in the supraumbilical area and a 15-mm trocar was placed under direct visualization. A 5-mm trocar was then placed in the right upper quadrant and a 5-mm trocar was placed below the left subcostal margin. A stab wound was made in the subxiphoid area and a Nafisa clamp inserted and removed to dilate the tract. A Petra liver retractor was inserted. The post was secured at the bedside by the nursing staff. The patient was placed in steep reverse Trendelenburg position and the Petra liver retractor was used to secure the liver towards the anterior abdominal wall. The pylorus was identified and 6 cm proximal to it, the lesser sac was entered using the LigaSure device. All lateral attachments to the greater curvature of the stomach, including the short gastric vessels, were ligated using the LigaSure device toward the gastrosplenic and gastrophrenic ligaments. Once this was done in its entirety, it was confirmed that all tubes within the nasal or oropharyngeal cavity, including a temperature probe were removed by Anesthesia. The bougie was then inserted by Anesthesia. Transection of the stomach was then begun staying adjacent to the bougie but away from the angularis. Transection of the stomach was performed near the portion of the stomach where the lesser sac was entered. Two laparoscopic Endo-WALLACE black annel were used at this location. Laparoscopic Endo WALLACE purple staple loads were then used for the remainder of the transection until the greater curvature of the stomach was fully transected. This was done staying close to the bougie. Care was taken to stay away from the angle of His cephalad. The staple line was then inspected. Hemostasis was identified. A leak test was then performed. It was clamped distally to the staple line. Irrigation solution was placed in the left upper quadrant and air was insufflated by Anesthesia into the sleeve. No leaks were identified. No obstruction was identified. This was done through the entirety of the staple line. The stomach was suctioned and the bougie removed fully intact under direct visualization. At this point, the irrigation solution was suctioned and again, hemostasis was noted. A wedge liver biopsy was then performed. The left lobe of the liver was identified. A portion of the edge of the left lobe of the liver was grasped. Using electrocautery, a wedge of the left liver was excised. The specimen was removed and sent off the field. Hemostasis of the wedge liver biopsy site was attained and noted using electrocautery. The 15-mm supraumbilical trocar was then removed and the greater curvature specimen removed from the site using a sponge stick guardado. A Amandeep-Lukas device was then used to close the fascia with a 0 Vicryl suture at the site. Again, hemostasis was noted. The Petra liver retractor was then removed under direct visualization. Pneumoperitoneum was desufflated. Hemostasis was noted at all incision sites and Marcaine was injected at all incision sites. A 3-0 Vicryl suture was used to close the deep subcutaneous tissue at the 15-mm incision site. All incision sites were closed using 4-0 Biosyn. Sterile dressings were applied. The patient tolerated the procedure well and was transferred to the recovery room in stable condition. LESLY CARRENO M.D. [id number]
[2019-12-27] MEDS ORDERED: PT OWN MED DRAWER 7, Y5N ONE (21:27)
[2019-12-27] MEDS: ENOXAPARIN NA (PORCINE) 40 MG/0.4 ML DISP.SYRIN SQ SCH (21:30)
[2019-12-27] MEDS: FAMOTIDINE 20 MG/50 ML IVPB 20 MG/50 ML MG IVPB SCH (21:30)
[2019-12-28] MEDS: ONDANSETRON 4 MG/2 ML VIAL IVPUSH SCH ×3 (01:40→09:35)
[2019-12-28] MEDS: HYDROmorphone HCL CARPU-JECT 1 MG/1 ML DISP.SYRIN IVPB PRN (02:44)
[2019-12-28] MEDS: ACETAMINOPHEN 1000 MG/100 ML VIAL (NON FORMULARY) IVPB SCH (05:37)
[2019-12-28] MEDS: METOCLOPRAMIDE HCL INJECTION 10 MG/2 ML VIAL IVPUSH SCH (05:37)
[2019-12-28] MEDS: INSULIN SLIDING SCALE (NOVOLOG) 1 VIAL SQ SCH (07:31)
[2019-12-28 07:53] LABS: HEMATOCRIT 37.1 % (35.4-49); HEMOGLOBIN 12.3 GM/dl (11.7-16.9); MCH 28.3 pg (25.7-33.7); MCHC 33.1 g/dl (32.0-35.9); MEAN CELL VOLUME 85.6 fl (80-96); MEAN PLT VOLUME 8.3 fl (7.5-11.1); PLATELET COUNT 210 K/MM3 (134-434); RBC 4.34 M/mm3 (4.00-5.60); RDW 12.9 % (11.9-15.9); WHITE BLOOD COUNT 9.1 K/mm3 (4.0-10.8)
[2019-12-28 08:07] LABS: ALBUMIN 3.1 g/dl (3.4-5.0); BILIRUBIN,TOTAL 1.2 mg/dl (0.2-1); CALCIUM 8.3 mg/dl (8.5-10); POTASSIUM 3.9 mmol/L (3.5-5.1); TOT PROT 5.7 g/dl (6.4-8.2)
--- NOTE | 2019-12-28 09:02 | DS ---
Physical Exam: SUBJECTIVE: Patient seen and examined OBJECTIVE: Vital Signs Temperature 98.2 F 12/28/19 06:00 Pulse Rate 87 12/28/19 06:00 Respiratory Rate 20 12/28/19 06:00 Blood Pressure 124/89 12/28/19 06:00 O2 Sat by Pulse Oximetry (%) 96 12/28/19 06:00 PHYSICAL EXAM GENERAL: The patient is awake, alert, and fully oriented, in no acute distress. HEAD: Normal with no signs of trauma. EYES: PERRL, extraocular movements intact, sclera anicteric, conjunctiva clear. ENT: Ears normal, nares patent, oropharynx clear without exudates, moist mucous membranes. NECK: Trachea midline, full range of motion, supple. LUNGS: breathing comfortably no accessory muscle use. ABDOMEN: Soft,mild diffuse tenderness, nondistended, incisions are clean no erythema, no guarding, no rebound, no hepatosplenomegaly, no masses. EXTREMITIES: warm, well-perfused, no edema. NEUROLOGICAL: Cranial nerves II through XII grossly intact. Normal speech, gait not observed. PSYCH: Normal mood, normal affect. SKIN: Warm, dry, normal turgor, no rashes or lesions noted. LABS CBC,CMP WBC 9.1 K/mm3 (4.0-10.8) 12/28/19 07:20 RBC 4.34 M/mm3 (4.00-5.60) 12/28/19 07:20 Hgb 12.3 GM/dl (11.7-16.9) 12/28/19 07:20 Hct 37.1 % (35.4-49) 12/28/19 07:20 MCV 85.6 fl (80-96) 12/28/19 07:20 MCH 28.3 pg (25.7-33.7) 12/28/19 07:20 MCHC 33.1 g/dl (32.0-35.9) 12/28/19 07:20 RDW 12.9 % (11.9-15.9) 12/28/19 07:20 Plt Count 210 K/MM3 (134-434) 12/28/19 07:20 MPV 8.3 fl (7.5-11.1) 12/28/19 07:20 Manual Slide Review Slide scanned 12/27/19 12:10 Platelet Comment No clumping noted 12/27/19 12:10 Sodium 136 mmol/L (136-145) 12/28/19 07:20 Potassium 3.9 mmol/L (3.5-5.1) 12/28/19 07:20 Chloride 105 mmol/L (98-107) 12/28/19 07:20 Carbon Dioxide 26 mmol/L (21-32) 12/28/19 07:20 Anion Gap 5 MMOL/L (8-16) L 12/28/19 07:20 BUN 11.0 mg/dl (7-18) 12/28/19 07:20 Creatinine 1.0 mg/dl (0.55-1.3) 12/28/19 07:20 Est GFR (CKD-EPI)AfAm 100.55 12/28/19 07:20 Est GFR (CKD-EPI)NonAf 86.76 12/28/19 07:20 POC Glucometer 101 UNITS (80-120) 12/28/19 06:20 Random Glucose 110 mg/dl (74-106) H 12/28/19 07:20 Calcium 8.3 mg/dl (8.5-10) L 12/28/19 07:20 Total Bilirubin 1.2 mg/dl (0.2-1) H 12/28/19 07:20 AST 38 U/L (15-37) H 12/28/19 07:20 ALT 45 U/L (13-61) 12/28/19 07:20 Alkaline Phosphatase 55 U/L (45-117) 12/28/19 07:20 Total Protein 5.7 g/dl (6.4-8.2) L 12/28/19 07:20 Albumin 3.1 g/dl (3.4-5.0) L 12/28/19 07:20 HOSPITAL COURSE: Date of Admission:12/27/19 Date of Discharge: 12/28/19 HOSPITAL COURSE: The patient was admitted to the Med-Surg Unit after elective bariatric surgery. Now, s/p laparoscopic vertical sleeve gastrectomy. The day of surgery, the patient ambulated the hallways with assistance. The patient was monitored with remote tele/continuous pulse ox. Narcotic and non-narcotic pain management control was achieved with oral and IV pain control. Upper GI series was obtained the following morning and no leak, extravastion or gastric outlet obstruction. Started on a Bariatric Stage 1 diet and tolerated well. Eunice-operative IV ABX were administered in addition to GI prophylaxis. DVT prophylaxis was achieved with SCDs and early ambulation. The discharge instructions and an oral pain management plan were reviewed with the patient. All questions answered. Above plan discussed with Dr. Carreno and agreed. Minutes to complete discharge: 20 Visit type - Case Type Case Type: Scheduled - Emergency Emergency Visit: No - New patient This patient is new to me today: Yes Date on this admission: 12/28/19 - Critical Care Critical Care patient: No
--- NOTE | 2019-12-28 09:27 | PN ---
Progress Note (short form) - Note Progress Note: ANESTHESIA POSTOP: 49 yo male, POD#1, s/p gastric sleeve Patient in bed. No complaints. Awaiting GI study. Pain adequately controlled. VSS, Afebrile Continue current care, encouraged IS and ambulation. No anesthetic complications.
[2019-12-28] MEDS: FAMOTIDINE 20 MG/50 ML IVPB 20 MG/50 ML MG IVPB SCH (10:05)
[2019-12-28] MEDS: ENOXAPARIN NA (PORCINE) 40 MG/0.4 ML DISP.SYRIN SQ SCH (10:15)
[2019-12-28] MEDS ORDERED: SODIUM CHLORIDE 1,000 ML IV SCH (10:45)
[2019-12-28 13:17] VITALS: BP 136/74; PULSE 63; TEMP 98.8
--- NOTE | 2019-12-28 16:21 | PN ---
Progress Note (short form) - Note Progress Note: POD 1 Pain controlled Vital Signs Period Temp Pulse Resp BP Sys/Chung Pulse Ox Last 24 Hr 97.8 F-98.8 F 55-87 18-20 121-137/63-89 96-100 CBC,CMP WBC 9.1 K/mm3 (4.0-10.8) 12/28/19 07:20 RBC 4.34 M/mm3 (4.00-5.60) 12/28/19 07:20 Hgb 12.3 GM/dl (11.7-16.9) 12/28/19 07:20 Hct 37.1 % (35.4-49) 12/28/19 07:20 MCV 85.6 fl (80-96) 12/28/19 07:20 MCH 28.3 pg (25.7-33.7) 12/28/19 07:20 MCHC 33.1 g/dl (32.0-35.9) 12/28/19 07:20 RDW 12.9 % (11.9-15.9) 12/28/19 07:20 Plt Count 210 K/MM3 (134-434) 12/28/19 07:20 MPV 8.3 fl (7.5-11.1) 12/28/19 07:20 Manual Slide Review Slide scanned 12/27/19 12:10 Platelet Comment No clumping noted 12/27/19 12:10 Sodium 136 mmol/L (136-145) 12/28/19 07:20 Potassium 3.9 mmol/L (3.5-5.1) 12/28/19 07:20 Chloride 105 mmol/L (98-107) 12/28/19 07:20 Carbon Dioxide 26 mmol/L (21-32) 12/28/19 07:20 Anion Gap 5 MMOL/L (8-16) L 12/28/19 07:20 BUN 11.0 mg/dl (7-18) 12/28/19 07:20 Creatinine 1.0 mg/dl (0.55-1.3) 12/28/19 07:20 Est GFR (CKD-EPI)AfAm 100.55 12/28/19 07:20 Est GFR (CKD-EPI)NonAf 86.76 12/28/19 07:20 POC Glucometer 101 UNITS (80-120) 12/28/19 06:20 Random Glucose 110 mg/dl (74-106) H 12/28/19 07:20 Calcium 8.3 mg/dl (8.5-10) L 12/28/19 07:20 Total Bilirubin 1.2 mg/dl (0.2-1) H 12/28/19 07:20 AST 38 U/L (15-37) H 12/28/19 07:20 ALT 45 U/L (13-61) 12/28/19 07:20 Alkaline Phosphatase 55 U/L (45-117) 12/28/19 07:20 Total Protein 5.7 g/dl (6.4-8.2) L 12/28/19 07:20 Albumin 3.1 g/dl (3.4-5.0) L 12/28/19 07:20 UGI : no leak/obstruction Clears Discharge home Problem List - Problems (1) Morbid (severe) obesity due to excess calories Code(s): E66.01 - MORBID (SEVERE) OBESITY DUE TO EXCESS CALORIES (2) Diabetes mellitus type 2 in obese Code(s): E11.69 - TYPE 2 DIABETES MELLITUS WITH OTHER SPECIFIED COMPLICATION; E66.9 - OBESITY, UNSPECIFIED (3) Hyperlipidemia Code(s): E78.5 - HYPERLIPIDEMIA, UNSPECIFIED Qualifiers: Hyperlipidemia type: unspecified Qualified Code(s): E78.5 - Hyperlipidemia , unspecified
[2019-12-29] MEDS ORDERED: glipiZIDE-XL 5 MG TAB.ER.24 PO SCH (07:00)
[2019-12-29] MEDS ORDERED: ATORVASTATIN CA 20 MG TABLET (FP) PO SCH (10:00)
--- NOTE | 2019-12-30 18:20 | PATH ---
Surgical Pathology Report Patient Name: BRONSON KAY Med. Rec. #: [id number] /Age/Gender: 1970 (Age: 49) / M Account: [id number] Location: [facility] MED-SURG Taken: 12/27/2019 Received: 12/27/2019 Reported: 12/30/2019 Physicians: Jay Carreno M.D. Specimen(s) Received A: GREATER CURVATURE STOMACH B: LIVER BIOPSY Clinical History Morbid obesity Final Diagnosis A. GREATER CURVATURE STOMACH, LAPAROSCOPIC VERTICAL SLEEVE GASTRECTOMY: SEGMENT OF STOMACH SHOWING MODERATELY ACTIVE CHRONIC GASTRITIS. IMMUNOSTAINING IS POSITIVE FOR H. PYLORI ORGANISMS. Comment: Immunostain for H. pylori performed at [place], [place] ([id number]) and interpreted at [facility] Positive and negative controls (internal if applicable) show appropriate results. B. LIVER, BIOPSY: LIVER TISSUE WITH STEATOSIS (20%), DIFFUSE. NO HISTOLOGIC EVIDENCE OF STEATOHEPATITIS. NO INCREASE IN FIBROSIS (TRICHROME STAIN) OR IRON (IRON STAIN) DEPOSITION. Electronically Signed Jay Morales M.D. Gross Description A. Received in formalin, labeled "greater curvature of stomach," is a 123 gram, 20.0 x 2.8 x 2.6 cm. portion of stomach with a stapled margin of resection. The serosa is joy-cohen with minimal attached fat. The mucosa is joy-pink and focally ulcerated. No mucosal masses are identified. Food Service Representative sections are submitted in one cassette. B. Received in formalin labeled "liver biopsy," is a 2.5 x 1.1 x 0.6 cm joy portion of soft tissue, consistent with a liver biopsy. The specimen is bisected and entirely submitted in one cassette. /12/28/2019 saudi12/28/2019
== END 2019-12-28 12:58 | disposition home or self-care (01) | DRG 403 ==
LOC: FM/S 08:33
PROVIDERS: ADMIT Surgery; ATTEND Surgery
PROC: 0DB64Z3 Excision of Stomach, Percutaneous Endoscopic Approach, Vertical (ICD-10-PCS; principal; 2019-12-27 11:12)
PROC: 0FB24ZX Excision of Left Lobe Liver, Percutaneous Endoscopic Approach, Diagnostic (ICD-10-PCS; 2019-12-27 11:12)
DX: E66.01 Morbid (severe) obesity due to excess calories (principal); Z68.41 Body mass index [BMI] 40.0-44.9, adult; E11.9 Type 2 diabetes mellitus without complications; E78.5 Hyperlipidemia, unspecified; R16.0 Hepatomegaly, not elsewhere classified; B96.81 Helicobacter pylori [H. pylori] as the cause of diseases classified elsewhere; K29.50 Unspecified chronic gastritis without bleeding
CPT/HCPCS: 36415; 74240-TC-FY; 80053; 82962; 85027; 94760; J0131; Q9967

== ENCOUNTER 2022-12-24 19:37 | Emergency (ER) | payer OTHER ==
[2022-12-24 19:52] VITALS: BP 140/81; PULSE 112; RESP 20; TEMP 97.9; BMI 34.9
[2022-12-24] MEDS ORDERED: ACETAMINOPHEN 1000 MG/100 ML BAG IVPB ONE (21:08)
[2022-12-24 21:22] LABS: BASO % 0.6 % (0-2.0); EOS % 1.3 % (0-4.5); HEMATOCRIT 43.7 % (35.4-49); HEMOGLOBIN 14.5 GM/dL (11.7-16.9); LYMPH % 14.1 % (8-40); MCH 27.8 pg (25.7-33.7); MCHC 33.2 g/dl (32.0-35.9); MEAN CELL VOLUME 83.9 fl (80-96); MEAN PLT VOLUME 7.5 fl (7.5-11.1); MONO % 7.3 % (3.8-10.2); NEUT % 76.7 % (42.8-82.8); PLATELET COUNT 273 10^3/uL (134-434); RDW 14.3 % (11.9-15.9); WHITE BLOOD COUNT 6.8 K/mm3 (4.0-10.0)
[2022-12-24 21:28] LABS: INR 0.97 (0.83-1.09); PROTHROMBIN TIME (PATIENT) 11.2 SEC (9.7-13.0)
[2022-12-24 21:30] LABS: CALCIUM 9.3 mg/dL (8.5-10.1)
[2022-12-24 21:31] LABS: ALBUMIN 3.8 g/dl (3.4-5.0); BLOOD UREA NITROGEN 13.1 mg/dL (7-18); MAGNESIUM 2.1 mg/dL (1.8-2.4)
[2022-12-24 21:35] LABS: BILIRUBIN,TOTAL 0.6 mg/dL (0.2-1); TOT PROT 7.5 g/dl (6.4-8.2)
[2022-12-24 21:39] LABS: N-TERMINAL BNP 45.1 pg/ml (5-125)
[2022-12-24] MEDS ORDERED: ACETAMINOPHEN INJECTION 100 ML IVPB ONE (21:41)
== END 2022-12-25 00:19 | disposition home or self-care (01) ==
LOC: JER 19:37
PROC: 3E033GC Introduction of Other Therapeutic Substance into Peripheral Vein, Percutaneous Approach (ICD-10-PCS; principal; 2022-12-24)
DX: R07.9 Chest pain, unspecified (principal)
CPT/HCPCS: 36415; 71045-TC-FY; 80053; 83690; 83735; 83880; 84484; 85025; 85610; 85730; 86850; 86900; 86901; 93005; 93010; 99285-25

== ENCOUNTER 2023-01-03 20:03 | Emergency (ER) | payer OTHER ==
[2023-01-03 20:09] VITALS: BP 140/95; PULSE 84; RESP 18; TEMP 98; BMI 34.9
[2023-01-03] MEDS ORDERED: ACETAMINOPHEN 325 MG TABLET (FP) PO ONE (21:32)
[2023-01-03] MEDS ORDERED: ACETAMINOPHEN 325 MG TABLET (FP) ONE (21:45)
== END 2023-01-03 22:34 | disposition home or self-care (01) ==
LOC: JERFT 20:03
DX: S13.4XXA Sprain of ligaments of cervical spine, initial encounter (principal); V49.40XA Driver injured in collision with unspecified motor vehicles in traffic accident, initial encounter
CPT/HCPCS: 99283-25

== ENCOUNTER 2024-02-12 15:05 | Emergency (ER) | payer OTHER ==
[2024-02-12 15:18] VITALS: BP 125/91; PULSE 67; RESP 18; TEMP 98; BMI 34.4
[2024-02-12] MEDS ORDERED: ACETAMINOPHEN 500 MG TABLET (FP) ONE (16:31)
[2024-02-12] MEDS: ACETAMINOPHEN 500 MG TABLET (FP) PO ONE (16:33)
[2024-02-12 16:48] LABS: URINE APPEARANCE CLEAR; URINE BILIRUBIN NEGATIVE (NEGATIVE); URINE COLOR YELLOW; URINE GLUCOSE (UA) NEGATIVE (NEGATIVE); URINE KETONE NEGATIVE (NEGATIVE); URINE LEUK ESTERASE NEGATIVE (NEGATIVE); URINE NITRITE NEGATIVE (NEGATIVE); URINE PROTEIN NEGATIVE (NEGATIVE)
== END 2024-02-12 20:16 | disposition home or self-care (01) ==
LOC: JER 15:05
DX: N50.812 Left testicular pain (principal); N43.3 Hydrocele, unspecified
CPT/HCPCS: 76870-TC; 81003; 87086; 99284-25